=== PATIENT | male | born 1995 | race Caucasian/White ===

== ENCOUNTER 2016-08-19 | Emergency (ER) | payer OTHER | END 2016-08-19 19:20 | disposition home or self-care (01) | DX: S83.91XA Sprain of unspecified site of right knee, initial encounter (principal); F17.200 Nicotine dependence, unspecified, uncomplicated; W22.8XXA Striking against or struck by other objects, initial encounter; Y92.69 Other specified industrial and construction area as the place of occurrence of the external cause; Y99.0 Civilian activity done for income or pay | CPT/HCPCS: 73564; 99283 ==

== ENCOUNTER 2021-09-03 03:17 | Emergency (ER) | payer OTHER ==
[~2021-09-03 03:17] MED LIST: CYCLOBENZAPRINE5 MG PO; FLOMAX 0.4 MG0.4 MG PO; IBUPROFEN800 MG PO; LEVOCETIRIZINE D5 MG PO; NAPROSYN500 MG PO; NORCO 5-325 TA1 EACH PO; OMEPRAZOLE40 MG PO; ZOFRAN 4 MG TAB4 MG PO; ZOFRAN4 MG PO
[2021-09-03 04:16] LABS: HEMOGLOBIN 16.4 gm/dl (14.0-17.5); RED BLOOD COUNT 5.37 M/UL (4.20-5.50); WHITE BLOOD COUNT 14.5 K/UL (4.5-11.0)
[2021-09-03 04:22] LABS: BUN/CREATININE RATIO 11 (0-10)
[2021-09-03] MEDS ORDERED: ZOFRAN ODT 4 MG4 MG PO (06:07)
[2021-09-03] MEDS ORDERED: TORADOL 10 MG T10 MG PO (06:07)
== END 2021-09-03 06:20 | disposition home or self-care (01) ==
LOC: ER1 03:17
PROVIDERS: Student in an Organized Health Care Education/Training Program
DX: N20.0 Calculus of kidney (principal); R10.30 Lower abdominal pain, unspecified; Z90.49 Acquired absence of other specified parts of digestive tract
CPT/HCPCS: 80053; 81001; 83690; 85025; 96374; 96375; 99284; J1885; J2405; Q9967

== ENCOUNTER 2022-02-03 17:53 | Emergency (ER) | payer OTHER ==
[~2022-02-03 17:53] MED LIST changes: +TORADOL 10 MG T10 MG PO; +ZOFRAN ODT 4 MG4 MG PO
[2022-02-03 20:15] LABS: BORDETELLA PARAPERTUSSIS Not Detected (Not Detectd); BORDETELLA PERTUSSIS Not Detected (Not Detectd); CHLAMYDIA PNEUMONIAE Not Detected (Not Detectd); CORONAVIRUS HKU1 Not Detected (Not Detectd); CORONAVIRUS NL63 Not Detected (Not Detectd); CORONAVIRUS OC43 Not Detected (Not Detectd); CORONOAVIRUS 229E Not Detected (Not Detectd); HUMAN METAPNEUMOVIRUS Not Detected (Not Detectd); HUMAN RHINOVIRUS/ENTEROVIRUS Not Detected (Not Detectd); INFLUENZA A Not Detected (Not Detectd); INFLUENZA B Not Detected (Not Detectd); MYCOPLASMA PNEUMONIAE Not Detected (Not Detectd); PARAINFLUENZA VIRUS 1 Not Detected (Not Detectd); PARAINFLUENZA VIRUS 2 Not Detected (Not Detectd); PARAINFLUENZA VIRUS 3 Not Detected (Not Detectd); PARAINFLUENZA VIRUS 4 Not Detected (Not Detectd); RESPIRATORY SYNCYTIAL VIRUS Not Detected (Not Detectd)
[2022-02-03 20:24] LABS: HEMOGLOBIN 14.2 gm/dl (14.0-17.5); RED BLOOD COUNT 4.71 M/UL (4.20-5.50); WHITE BLOOD COUNT 13.4 K/UL (4.5-11.0)
[2022-02-03 20:49] LABS: BUN/CREATININE RATIO 12 (0-10)
[2022-02-03 22:42] LABS: SARS-CoV-2 NOT DETECTED (Not Detectd)
[2022-02-04] MEDS ORDERED: CEFDINIR300 MG PO (00:09)
== END 2022-02-04 01:17 | disposition home or self-care (01) ==
LOC: ER1 17:53
PROVIDERS: Family Medicine
DX: N39.0 Urinary tract infection, site not specified (principal); Z20.822 Contact with and (suspected) exposure to COVID-19
CPT/HCPCS: 71046; 80053; 81001; 83605; 85025; 87040; 87077; 87086; 87186; 87633; 96374; 99284; J0696; Q9967